=== PATIENT | female | born 1970 | race African-American/Black ===

== ENCOUNTER 2021-03-28 13:06 | Emergency (ER) | payer OTHER ==
[~2021-03-28] VITALS: Ht 157.5 cm; Wt 73.0 kg
[~2021-03-28 13:06] MED LIST: ALBU2.5V8 INH; HYDR-2761 PO
[2021-03-28 13:30] VITALS: BP 116/53
[2021-03-28] MEDS ORDERED: ORPH100T PO (13:40)
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
[2021-03-28] MEDS ORDERED: IBUPROFEN 200 MG TABLET. PO ONE (14:15)
== END 2021-03-28 13:55 | disposition home or self-care (01) ==
LOC: ER 13:06
DX: S46.912A Strain of unspecified muscle, fascia and tendon at shoulder and upper arm level, left arm, initial encounter (principal); S29.012A Strain of muscle and tendon of back wall of thorax, initial encounter; M54.5 Low back pain; J45.909 Unspecified asthma, uncomplicated; Z72.0 Tobacco use; Z98.51 Tubal ligation status; V49.88XA Car occupant (driver) (passenger) injured in other specified transport accidents, initial encounter; Y93.89 Activity, other specified; Y92.488 Other paved roadways as the place of occurrence of the external cause; Y99.8 Other external cause status
CPT/HCPCS: 99283